=== PATIENT | male | born 1980 | race Two or more races ===

== ENCOUNTER → 2021-04-26 | Outpatient (CLI) | payer OTHER ==
--- NOTE | 2021-04-26 14:57 | REP ---
INDICATION: HIT R GREAT TOE ON REEF 1 WEEK AGO. COMPARISON: None. TECHNIQUE: Four views of the right great toe. FINDINGS: Four views of the right great toe demonstrate normal bones, joints, and soft tissues. No fracture or subluxation is seen. No opaque foreign body noted. IMPRESSION: Negative right great toe series. <Electronically signed by Conor Denise > 04/26/21 [id number]
== END ==
LOC: M RAD 14:24
PROVIDERS: ATTEND Physician Assistant
DX: M79.674 Pain in right toe(s) (principal)

== ENCOUNTER 2022-04-29 03:57 | Emergency (ER) | payer OTHER ==
[~2022-04-29] VITALS: Ht 175.3 cm; Wt 100.0 kg
[2022-04-29] MEDS ORDERED: PSEU30TA88 PO (04:03)
[2022-04-29] MEDS ORDERED: CLAR5TAB7 PO (04:03)
[2022-04-29] MEDS ORDERED: MUCI1TAB18 PO (04:03)
[2022-04-29] MEDS ORDERED: BENZONATATE 100MG CAPSULE PO ONE (06:25)
[2022-04-29] MEDS ORDERED: LIDOCAINE VISCOUS 2% SOLN 15ML UDC SS ONE (06:25)
[2022-04-29] MEDS ORDERED: ALBUTEROL 90 MCG/ACT 8GM HFA INHALER INH ONE (06:25)
[2022-04-29] MEDS ORDERED: BENZ200C70 PO (08:26)
[2022-04-29] MEDS ORDERED: PROAAER10 INH (08:26)
[2022-04-29] MEDS ORDERED: LIDO2SOL17 PO (08:28)
[2022-04-29 08:47] VITALS: BP 143/93
== END 2022-04-29 08:49 | disposition home or self-care (01) ==
LOC: M ED 03:57
DX: R05.9 Cough, unspecified (principal); R09.81 Nasal congestion; R07.0 Pain in throat; F17.200 Nicotine dependence, unspecified, uncomplicated; Z79.51 Long term (current) use of inhaled steroids; Z79.899 Other long term (current) drug therapy

== ENCOUNTER → 2022-11-20 | Outpatient (CLI) | payer OTHER ==
[~2022-11-20] MED LIST: BENZ200C70 PO; CLAR5TAB7 PO; ISOVUE-300 61% 100ML VIAL As Ordered ONE; LIDO15SO4 PO; LIDOCAINE 1% MDV 20ML VIAL As Ordered ONE; MUCI1TAB18 PO; PROAAER10 INH; PROHANCE 279.3MG/ML 5ML VIAL As Ordered ONE; PSEU30TA88 PO
== END ==
LOC: M RAD 06:38
PROVIDERS: ATTEND Physician Assistant
DX: M25.512 Pain in left shoulder (principal); S46.012A Strain of muscle(s) and tendon(s) of the rotator cuff of left shoulder, initial encounter; X58.XXXA Exposure to other specified factors, initial encounter; Y92.9 Unspecified place or not applicable
CPT/HCPCS: 23350; 73223; 77002; A9576

== ENCOUNTER → 2025-07-27 | Outpatient (CLI) | payer OTHER ==
[~2025-07-27] MED LIST changes: -ISOVUE-300 61% 100ML VIAL As Ordered ONE; -LIDO15SO4 PO; +LIDO15SO8 PO; -LIDOCAINE 1% MDV 20ML VIAL As Ordered ONE; -PROHANCE 279.3MG/ML 5ML VIAL As Ordered ONE
== END ==
LOC: M PLAIMG 15:50
PROVIDERS: ATTEND Physician Assistant
DX: R20.2 Paresthesia of skin (principal)